=== PATIENT | male | born 1990 | race Asian ===

== ENCOUNTER → 2019-09-26 | Outpatient (CLI) | payer BC ==
[~2019-09-26] MED LIST: GADOBENATE DIMEGLUMINE 1 ML IV ONE; IOPAMIDOL 300 MG/ML 15ML VIAL IT ONE; LIDOCAINE HCL 1% LOCAL INJ 20 ML VIAL ONE
--- NOTE | 2019-09-26 14:29 | Diagnostic Imaging Report ---
TECHNIQUE: Magnetic resonance arthrogram of the LEFT SHOULDER was performed after intra-articular injected contrast. COMPARISON: None available. HISTORY: Pain FINDINGS: MUSCLES AND TENDONS: Rotator Cuff: Tendons: Supraspinatus: Intact Infraspinatus: Intact Teres Minor: Intact Subscapularis: Intact Muscles: No focal muscle atrophy. Biceps Tendon: The long head of the biceps tendon is intact and within the intertubercular groove. GLENOHUMERAL JOINT: Glenoid Labrum: Possible tear of the superior labrum coronal image 11 and 12 versus interface with the adjacent articular side of the rotator cuff Articular Cartilage: No focal defect. AC JOINT AND ACROMION: Mild hypertrophic degenerative changes of the acromioclavicular joint. The acromion is unremarkable. BONE: No specific evidence of a focal or infiltrative bone marrow replacing abnormality. No acute fracture. SOFT TISSUES: Otherwise, the soft tissues appear unremarkable. IMPRESSION: Intact rotator cuff. Possible superior labral tear as above. Acromioclavicular arthrosis. Signed by: Dr. Mick Frost M.D. on 09/26/2019 2:26 PM
--- NOTE | 2019-09-26 15:37 | Diagnostic Imaging Report ---
EXAM: Left glenohumeral joint arthrogram DATE: 09/26/2019 12:42 PM INDICATION: Left shoulder pain COMPARISON: None Physician performing procedure: Dr. Elicia Watters PROCEDURES PERFORMED: Fluoroscopically-guided left glenohumeral joint arthrogram with MRI to follow Fluoro time: 0.5 Dose: 5mGy Anesthesia: Local, 1% lidocaine Devices: 22 gauge BD Quincke needle PROCEDURE REPORT: After written and verbal consent were obtained, the patient was placed supine on the fluoroscopy table with the left shoulder in external rotation. Using fluoroscopic guidance, sterile technique and local anesthesia, a 22 gauge, 3.5 inch needle was inserted percutaneously into the left glenohumeral joint. Proper placement was confirmed by injecting Isovue 300 into the joint under fluoroscopy. Next, 12cc of a 1:200 mixture of Multihance with Isovue 300 were then injected. Complications: None Blood loss: Minimal Samples: None Patient disposition: MRI in stable condition. IMPRESSION: Uncomplicated fluoroscopically-guided left glenohumeral joint arthrogram with MRI to follow. Contrast is within the joint. See MRI report for full findings. Signed by: Elicia Watters MD on 09/26/2019 3:34 PM
== END ==
LOC: DX 12:20
PROVIDERS: ATTEND Specialist
DX: S43.432A Superior glenoid labrum lesion of left shoulder, initial encounter (principal)
CPT/HCPCS: 20610; 23350; 73222; 77002; A9577; J2001; Q9967